=== PATIENT | female | born 1945 | race Caucasian/White ===

== ENCOUNTER 2017-04-28 11:28 | Emergency (ER) | payer MEDICARE, BC ==
[2017-04-28] MEDS: Atropine 0.1 MG/ML 10 ML Syringe IVPUSH ONE ×2 (11:40→20:11)
--- NOTE | 2017-04-28 11:41 | EDM.PDOC ---
ED HPI GENERAL MEDICAL PROBLEM - General Stated Complaint: LOW BACK PAIN Time Seen by Provider: 04/28/17 11:30 Source of Information: Reports: Family, Old Records History Limitations: Reports: Altered Mental Status - Related Data Allergies Allergy/AdvReac Type Severity Reaction Status Date / Time acetaminophen [From Percocet] Allergy Irritabilit Verified 02/15/16 14:13 y naproxen Allergy Hives Verified 02/15/16 14:13 oxycodone HCl [From Percocet] Allergy Irritabilit Verified 02/15/16 14:13 y Home Meds: Home Meds Atenolol [Atenolol] 100 mg PO DAILY 04/07/14 [History] Furosemide [Furosemide] 20 mg PO BID 04/07/14 [History] Levothyroxine Sodium [Tirosint] 125 mcg PO BEDTIME 04/07/14 [History] Warfarin Sodium [Warfarin Sodium] 5 mg PO ASDIRECTED 04/07/14 [History] Warfarin [Coumadin] 2.5 mg PO ASDIRECTED 04/07/14 [History] Zolpidem [Ambien] 10 mg PO ASDIRECTED PRN 04/07/14 [History] Acyclovir 1 cap PO TID 02/15/16 [History] Diltiazem HCl [Diltiazem ER] 1 tab PO DAILY 02/15/16 [History] Hydroxychloroquine [Plaquenil] 1 tab PO BID 02/15/16 [History] Morphine [MS Contin] 1 tab PO BID 02/15/16 [History] Naltrexone 1 tab PO BID 02/15/16 [History] buPROPion [Wellbutrin] 1 tab PO BID 02/15/16 [History] traMADol Hcl/Acetaminophen [Ultracet Tablet] 1 tab PO Q6H 02/15/16 [History] Past Medical History HEENT History: Reports: Cataract, Impaired Vision Cardiovascular History: Reports: Hypertension Gastrointestinal History: Reports: Diverticulosis, GERD Musculoskeletal History: Reports: Arthritis Endocrine/Metabolic History: Reports: Hypothyroidism - Past Surgical History HEENT Surgical History: Reports: Cataract Surgery GI Surgical History: Reports: Bariatric Procedure, Other (See Below) Musculoskeletal Surgical History: Reports: Knee Replacement, Shoulder Replacement Social & Family History - Tobacco Use Smoking Status *Q: Never Smoker - Recreational Drug Use Recreational Drug Use: No - Living Situation & Occupation Living situation: Reports: Occupation: Retired ED ROS GENERAL - Review of Systems Review Of Systems: Unable To Obtain ED EXAM, GENERAL - Physical Exam Exam: See Below Exam Limited By: Other (morbid obesity) General Appearance: Obtunded, Obese Eye Exam: Bilateral Eye: Other (initially pupils mid point and not responsive) Ears: Normal Canal Ear Exam: Bilateral Ear: Auricle Normal, Canal Normal Nose: Normal Inspection, Normal Mucosa, No Blood Throat/Mouth: Normal Lips, Normal Oropharynx, No Airway Compromise Head: Atraumatic, Normocephalic Neck: Normal Inspection Respiratory/Chest: Other (agonal breathing on arrival) GI/Abdominal: Soft, No Distention Extremities: Normal Inspection, Normal Range of Motion, No Pedal Edema Neurological: Other (comatose) Skin Exam: Warm, Dry, Intact, No Rash, Other (pale) Lymphatic: No Adenopathy EKG INTERPRETATION EKG Date: 04/28/17 Time: 11:30 Rhythm: Other (atrial bradycardia) Rate (Beats/Min): 47 [place]: Normal P-Wave: Variable QRS: RBBB ST-T: Normal QT: Normal Comparison: NA - No Prior EKG Course - Vital Signs Text/Narrative:: Patient had a rapid downhill course in the ER going from agonal breathing to non -breathing, palpable pulse to no pulse. Pupils went from mid point to fixed and dilated in short order. Atropine did not show any benefit so a dopamine drip started. Patient intubated by anesthesia, sats remained low. Initial CXR showed ? R main stem intubation. ET tube pulled back, but sats remained low. Urban placed. Family consulted regarding grim prognosis/clinical . Will stop resuscitation efforts. - Orders/Labs/Meds Orders: Active Orders 24 hr Category Date Time Status Cardiac Monitoring [RC] .As Directed Care 04/28/17 11:35 Active EKG Documentation Completion [RC] ASDIRECTED Care 04/28/17 11:35 Active Urban Catheter Insertion [Insert Urinary Catheter] [OM. Care 04/28/17 11:45 Ordered PC] Q24H Urinary Catheter Assessment [RC] ASDIRECTED Care 04/28/17 11:34 Active Chest 1V Frontal [CR] Stat Exams 04/28/17 11:36 Taken ABG [BLOOD GAS ARTERIAL] [BG] Stat Lab 04/28/17 11:47 Ordered BASIC METABOLIC PANEL,BMP [CHEM] Stat Lab 04/28/17 11:40 Received D-DIMER QUANTITATIVE [COAG] Stat Lab 04/28/17 11:40 Received TROPONIN I [CHEM] Stat Lab 04/28/17 11:40 Received UA W/MICROSCOPIC [URIN] Stat Lab 04/28/17 11:34 Uncollected DOPamine/Dextrose 5%-Water [DOPamine in D5W 400 MG/250 Med 04/28/17 11:45 Ordered ML] 400 mg in 250 ml IV TITRATE Sodium Chloride 0.9% [Normal Saline] 250 ml Med 04/28/17 11:45 Active IV ASDIRECTED EKG 12 Lead [EK] Routine Ther 04/28/17 11:35 Ordered Medication Orders Sodium Chloride (Normal Saline) 250 mls @ 250 mls/hr IV ASDIRECTED JENNIFER Dopamine HCl/Dextrose (Dopamine In D5w 400 Mg/250 Ml) 400 mg in 250 mls @ 0 mls /hr IV TITRATE JENNIFER; 2 MCG/KG/MIN PRN Reason: Protocol Labs: Laboratory Tests 04/28/17 Range/Units 11:40 WBC 13.2 H (4.5-11.0) K/uL RBC 4.41 (3.30-5.50) M/uL Hgb 13.1 (12.0-15.0) g/dL Hct 40.2 (36.0-48.0) % MCV 91 (80-98) fL MCH 30 (27-31) pg MCHC 33 (32-36) % Plt Count 125 L (150-400) K/uL Meds: Medications Generic Name Dose Route Start Last Admin Trade Name Freq PRN Reason Stop Dose Admin Sodium Chloride 250 mls @ 250 mls/hr 04/28/17 11:45 Normal Saline IV ASDIRECTED JENNIFER Dopamine HCl/Dextrose 400 mg in 250 mls @ 0 mls/hr 04/28/17 11:45 Dopamine In D5w 400 Mg/250 Ml IV TITRATE JENNIFER Protocol 2 MCG/KG/MIN Discontinued Medications Generic Name Dose Route Start Last Admin Trade Name Freq PRN Reason Stop Dose Admin Atropine Sulfate 1 mg 04/28/17 11:40 Atropine 0.1 Mg/Ml IVPUSH 04/28/17 11:41 ONETIME ONE Departure - Departure Time of Disposition: 12:05 Disposition: 20 Preliminary Cause of *Q: Cardiac Arrest Clinical Impression: Cardiorespiratory arrest, Referrals: Moises Devine MD [Primary Care Provider] - - My Orders Last 24 Hours: My Active Orders 04/28/17 11:34 Urinary Catheter Assessment [RC] ASDIRECTED UA W/MICROSCOPIC [URIN] Stat 04/28/17 11:35 Cardiac Monitoring [RC] .As Directed EKG Documentation Completion [RC] ASDIRECTED EKG 12 Lead [EK] Routine 04/28/17 11:36 Chest 1V Frontal [CR] Stat 04/28/17 11:40 BASIC METABOLIC PANEL,BMP [CHEM] Stat D-DIMER QUANTITATIVE [COAG] Stat TROPONIN I [CHEM] Stat 04/28/17 11:45 Urban Catheter Insertion [Insert Urinary Catheter] [OM.PC] Q24H DOPamine/Dextrose 5%-Water [DOPamine in D5W 400 MG/250 ML] 400 mg in 250 ml IV TITRATE Sodium Chloride 0.9% [Normal Saline] 250 ml IV ASDIRECTED 04/28/17 11:47 ABG [BLOOD GAS ARTERIAL] [BG] Stat - Assessment/Plan Last 24 Hours: My Active Orders 04/28/17 11:34 Urinary Catheter Assessment [RC] ASDIRECTED UA W/MICROSCOPIC [URIN] Stat 04/28/17 11:35 Cardiac Monitoring [RC] .As Directed EKG Documentation Completion [RC] ASDIRECTED EKG 12 Lead [EK] Routine 04/28/17 11:36 Chest 1V Frontal [CR] Stat 04/28/17 11:40 BASIC METABOLIC PANEL,BMP [CHEM] Stat D-DIMER QUANTITATIVE [COAG] Stat TROPONIN I [CHEM] Stat 04/28/17 11:45 Urban Catheter Insertion [Insert Urinary Catheter] [OM.PC] Q24H DOPamine/Dextrose 5%-Water [DOPamine in D5W 400 MG/250 ML] 400 mg in 250 ml IV TITRATE Sodium Chloride 0.9% [Normal Saline] 250 ml IV ASDIRECTED 04/28/17 11:47 ABG [BLOOD GAS ARTERIAL] [BG] Stat
[2017-04-28] MEDS ORDERED: Sodium Chloride 0.9% 250 ML IV SCH (11:45)
[2017-04-28] MEDS ORDERED: DOPamine/Dextrose 5%-Water 400 MG/250 ML BAG IV SCH (11:45)
--- NOTE | 2017-04-28 12:33 | CR ---
Chest 1V Frontal INDICATION: decreased LOC FINDINGS: Comparison 04/07/2014. New ETT with tip in the right mainstem bronchus. This could be retra cted approximately 5.5 cm. Lungs are clear. Heart size is prominent. Esophageal hiatal hernia. Postop erative changes right shoulder.
--- NOTE | 2017-05-01 08:11 | ANES ---
DATE OF SERVICE: 04/28/2017 A 71-year-old lady in the emergency room in respiratory failure and bradycardia. I was asked by the Emergency Room to place an endotracheal tube. This is a rather short-necked lady. They are bagging her with a bag-valve mask. She has some respiratory effort, but she is not really moving any air. Under direct visualization with a #3 Zelaya blade, I was able to visualize the vocal cords. I could not get the endotracheal tube to make the angle. Therefore, a bougie was used, placed in between the vocal cords, and a #8 endotracheal tube was placed. It was taped at the 22 josé. Her SaO2 quickly came up into the 90s. Of note is, during the intubation, she did have some liquid material come into her throat, and this was suctioned. Pb Lucero CRNA /[id number]
[2017-05-01 10:25] VITALS: BP 85/36
== END 2017-04-28 12:05 | disposition expired ==
LOC: JP.ED 11:28
DX: I46.9 Cardiac arrest, cause unspecified (principal); I10 Essential (primary) hypertension; Z79.899 Other long term (current) drug therapy; Z88.6 Allergy status to analgesic agent; Z88.8 Allergy status to other drugs, medicaments and biological substances
CPT/HCPCS: 36415; 51702; 71010; 80048; 84484; 85027; 85379; 93005; 96374; 99285; J0461; 93010; J1265; J7050